=== PATIENT | female | born 1945 | race Caucasian/White ===

== ENCOUNTER 2021-04-08 06:56 | Day surgery (SDC) | payer MEDICARE, OTHER ==
[~2021-04-08 06:56] MED LIST: Lactated Ringers 1,000 ML IV SCH; Sodium Chloride 0.9% 10 ML SDV IV PRN; Sodium Chloride 0.9% 10 ML Syringe FLUSH PRN; Sodium Chloride 0.9% 2.5 ML Syringe FLUSH PRN
[2021-04-08] MEDS ORDERED: Ondansetron 4 MG/2 ML SDV ONE (07:00)
[2021-04-08] MEDS ORDERED: Lidocaine 2% 5 ML SDV ONE (07:00)
[2021-04-08] MEDS ORDERED: fentaNYL 100 MCG/2 ML SDV ONE (07:01)
[2021-04-08] MEDS ORDERED: Propofol 200 MG/20 ML SDV ONE (07:01)
--- NOTE | 2021-04-08 07:50 | PCM.PREANE ---
Preanesthetic Assessment - Anesthesia/Transfusion/Family Hx Anesthesia History: Prior Anesthesia Without Reaction Other Type of Anesthesia Reaction Comment: DENIES ANY PROBLEMS WITH ANESTHESIA Transfusion History: No Prior Transfusion(s) - Review of Systems General: No Symptoms Pulmonary: No Symptoms Cardiovascular: No Symptoms Gastrointestinal: No Symptoms Neurological: No Symptoms Other: Reports: None - Physical Assessment NPO Status Date: 04/08/21 NPO Status Time: 00:00 Vital Signs: Last Vital Signs Temp 97.7 F 04/08/21 07:11 Pulse 72 04/08/21 07:11 Resp 14 04/08/21 07:11 BP 149/74 H 04/08/21 07:11 Pulse Ox 96 04/08/21 07:11 Height: 5 ft 2 in Weight: 121 lb ASA Class: 3 Mental Status: Alert & Oriented x3 Airway Class: Mallampati = 2 Dentition: Reports: Normal Dentition ROM/Head Extension: Full Lungs: Clear to Auscultation, Normal Respiratory Effort Cardiovascular: Regular Rate, Regular Rhythm - Allergies Allergies/Adverse Reactions: Allergies Allergy/AdvReac Type Severity Reaction Status Date / Time No Known Allergies Allergy Verified 04/03/21 11:25 - Acknowledgements Anesthesia Type Planned: General Anesthesia Pt an Appropriate Candidate for the Planned Anesthesia: Yes Alternatives and Risks of Anesthesia Discussed w Pt/Guardian: Yes Pt/Guardian Understands and Agrees with Anesthesia Plan: Yes PreAnesthesia Questionnaire HEENT History: Reports: Other (See Below) Cardiovascular History: Reports: None Respiratory History: Reports: Other (See Below) Other Respiratory History: asthma as a child Gastrointestinal History: Reports: Other (See Below) Other Gastrointestinal History: epigastric pain and bloating Genitourinary History: Reports: None [employer] History: Reports: Musculoskeletal History: Reports: Osteoporosis Other Musculoskeletal History: psoratic arthritis Neurological History: Reports: Parkinson's Psychiatric History: Reports: Depression Endocrine/Metabolic History: Reports: None Hematologic History: Reports: None Immunologic History: Reports: None Oncologic (Cancer) History: Reports: None Dermatologic History: Reports: Psoriasis - Past Surgical History Head Surgeries/Procedures: Reports: None HEENT Surgical History: Reports: None Cardiovascular Surgical History: Reports: None Respiratory Surgical History: Reports: None GI Surgical History: Reports: Colonoscopy Female Surgical History: Reports: Hysterectomy, Salpingo-Oophorectomy Endocrine Surgical History: Reports: None Neurological Surgical History: Reports: None Musculoskeletal Surgical History: Reports: Other (See Below) Other Musculoskeletal Surgeries/Procedures:: tendon repair-left hand Oncologic Surgical History: Reports: None Dermatological Surgical History: Reports: None - SUBSTANCE USE Tobacco Use Status *Q: Former Tobacco User Tobacco Use Within Last Twelve Months: No - HOME MEDS Home Medications: Home Meds traZODone HCl [Trazodone HCl] 50 mg PO BEDTIME 08/23/14 [History] Adalimumab [Humira(Cf) Pen] 1 injection SUBCUT ASDIRECTED 04/03/21 [History] Carbidopa/Levodopa [Carbidopa-Levodopa 25-100] 1 tab PO TID 04/03/21 [History] Cholecalciferol (Vitamin D3) [Vitamin D3] 1,000 units PO DAILY 04/03/21 [History] Ezetimibe 10 mg PO DAILY 04/03/21 [History] Latanoprost/Pf [Latanoprost 0.005% Eye Drop] 1 drop EYEBOTH BEDTIME 04/03/21 [History] Lutein/Minerals/Vit A,C & E [Ocuvite] 1 tab PO DAILY 04/03/21 [History] Meloxicam [Mobic] 7.5 mg PO BID 04/03/21 [History] Potassium Gluconate [Potassium] 99 mg PO DAILY 04/03/21 [History] Selegiline HCl 5 mg PO BID 04/03/21 [History] Sertraline HCl 25 mg PO DAILY 04/03/21 [History] Zoledronic Acid in Water [Reclast] 1 dose IV ASDIRECTED 04/03/21 [History] - CURRENT (IN HOUSE) MEDS Current Meds: Current Medications Lactated Ringer's (Ringers, Lactated) 1,000 mls @ 125 mls/hr IV ASDIRECTED [facility] Last Admin: 04/08/21 07:14 Dose: 125 mls/hr Documented by: Sodium Chloride (Sodium Chloride 0.9% 10 Ml Syringe) 10 ml FLUSH ASDIRECTED PRN PRN Reason: Keep Vein Open Sodium Chloride (Sodium Chloride 0.9% 2.5 Ml Syringe) 2.5 ml FLUSH ASDIRECTED PRN PRN Reason: Keep Vein Open Sodium Chloride (Sodium Chloride 0.9% 10 Ml Syringe) 10 ml FLUSH ASDIRECTED PRN PRN Reason: Keep Vein Open Sodium Chloride (Sodium Chloride 0.9% 2.5 Ml Syringe) 2.5 ml FLUSH ASDIRECTED PRN PRN Reason: Keep Vein Open Sodium Chloride (Sodium Chloride 0.9% 10 Ml Sdv) 10 ml IV ASDIRECTED PRN PRN Reason: IV Use Discontinued Medications Fentanyl (Fentanyl 100 Mcg/2 Ml Sdv) Confirm Administered Dose 100 mcg .ROUTE .STK-MED ONE Stop: 04/08/21 07:02 Lidocaine (Lidocaine 2% 5 Ml Sdv) Confirm Administered Dose 5 ml .ROUTE .STK-MED ONE Stop: 04/08/21 07:01 Ondansetron HCl (Ondansetron 4 Mg/2 Ml Sdv) Confirm Administered Dose 4 mg .ROUTE .STK-MED ONE Stop: 04/08/21 07:01 Propofol (Propofol 200 Mg/20 Ml Sdv) Confirm Administered Dose 200 mg .ROUTE .STK-MED ONE Stop: 04/08/21 07:02
--- NOTE | 2021-04-08 08:10 | PCM48HPAN ---
Post Anesthesia Note - EVALUATION WITHIN 48HRS OF ANESTHETIC Vital Signs in Normal Range: Yes Patient Participated in Evaluation: Yes Respiratory Function Stable: Yes Airway Patent: Yes Cardiovascular Function Stable: Yes Hydration Status Stable: Yes Pain Control Satisfactory: Yes Nausea and Vomiting Control Satisfactory: Yes Mental Status Recovered: Yes Vital Signs: Last Vital Signs Temp 97.7 F 04/08/21 07:11 Pulse 72 04/08/21 07:11 Resp 14 04/08/21 07:11 BP 149/74 H 04/08/21 07:11 Pulse Ox 96 04/08/21 07:11
--- NOTE | 2021-04-08 08:10 | PCM.POSTAN ---
POST ANESTHESIA ASSESSMENT - MENTAL STATUS Mental Status: Alert, Oriented - VITAL SIGNS Vital Signs: Last Vital Signs Temp 97.7 F 04/08/21 07:11 Pulse 72 04/08/21 07:11 Resp 14 04/08/21 07:11 BP 149/74 H 04/08/21 07:11 Pulse Ox 96 04/08/21 07:11 - RESPIRATORY Respiratory Status: Respiratory Rate WNL, Airway Patent, O2 Saturation Stable - CARDIOVASCULAR CV Status: Pulse Rate WNL, Blood Pressure Stable - GASTROINTESTINAL GI Status: No Symptoms - POST OP HYDRATION Hydration Status: Adequate & Stable
--- NOTE | 2021-04-08 08:15 | PCM.OPNOTE ---
- General Post-Op/Procedure Note Date of Surgery/Procedure: 04/08/21 Operative Procedure(s): Diagnostic EGD with biopsy Findings: Mild esophagitis and stricture at the GE junction Pre Op Diagnosis: CHronic abdominal pain, bloating Post-Op Diagnosis: Esophagitis [place]est[place] [facility] [place] Surgeon: Stephanie Macdonald Condition: Good
[2021-04-08 08:33] VITALS: BP 104/61; PULSE 71
--- NOTE | 2021-04-08 12:26 | OR ---
SURGEON: STEPHANIE MACDONALD MD DATE OF PROCEDURE: 04/08/2021 PREOPERATIVE DIAGNOSES: Chronic abdominal pain, bloating. POSTOPERATIVE DIAGNOSIS: Esophagitis. PROCEDURE PERFORMED: Diagnostic esophagogastroduodenoscopy with biopsy. PRIMARY SURGEON: Stephanie Macdonald MD ANESTHESIA: MAC. INSTRUMENT USED: Olympus endoscope. EXTENT OF EXAM: To the second portion of duodenum. PREPARATION: Good. LIMITATIONS: None. INDICATIONS FOR EXAMINATION: The patient is a 75-year-old female with a history of Parkinson, who presents with chronic abdominal pain and bloating. The patient and I discussed her symptoms, and the decision was made to proceed with a diagnostic EGD. I explained the procedure, expected perioperative course, and the risks. She verbalized understanding and wishes to proceed. PROCEDURE IN DETAIL: The patient was brought to the endoscopy suite and placed in a beach chair position. A time-out was completed verifying the patient's name, age, date of , allergies, and procedure to be performed. Monitored anesthesia care was induced, and a bite block was placed in the patient's mouth. Continuous oxygen was provided via nasal cannula throughout the procedure. After adequate sedation was achieved, a well-lubricated endoscope was placed in the patient's mouth and advanced under direct visualization to the second portion of duodenum. This appeared normal, and a photograph was taken. The scope was then fully withdrawn while examining the color, texture, anatomy, and integrity of mucosa of the upper GI tract. The duodenum appeared normal. The scope was brought into the stomach, and a photograph was taken of the pylorus and GE junction. The patient was noted to have a slightly patulous lower esophageal sphincter. Biopsies were taken of the gastric antrum, body, and fundus and sent for histologic review and H. pylori testing. The scope was then brought into the distal esophagus. At the Z-line, the patient appeared to have a very mild narrowing associated with some esophagitis. A biopsy above this area was taken and sent to Pathology labeled as esophagus. Even though it was slightly narrowed, the esophagus was widely patent, so I made no attempt at dilation. The remainder of the esophagus appeared normal. The scope was removed, and the procedure terminated. The patient tolerated the procedure well and was transferred to the PACU in stable condition. ENDOSCOPIC DIAGNOSIS: Esophagitis. RECOMMENDATIONS: Follow up in clinic in 2 weeks. NICOLE PRASAD /[id number]
== END 2021-04-08 08:57 | disposition home or self-care (01) ==
LOC: MW.SDS 06:56
PROVIDERS: ATTEND Surgery
DX: K29.50 Unspecified chronic gastritis without bleeding (principal); K20.90 Esophagitis, unspecified without bleeding; M81.0 Age-related osteoporosis without current pathological fracture; G20 Parkinson's disease; M06.9 Rheumatoid arthritis, unspecified; E78.00 Pure hypercholesterolemia, unspecified; E11.9 Type 2 diabetes mellitus without complications; Z79.899 Other long term (current) drug therapy; Z79.84 Long term (current) use of oral hypoglycemic drugs; Z87.891 Personal history of nicotine dependence
CPT/HCPCS: 43239; J2405; J2704; J3010; J7120; 00731; 88305; 99100

== ENCOUNTER 2022-09-22 13:51 | Emergency (ER) | payer MEDICARE, OTHER ==
[2022-09-22] MEDS ORDERED: Sodium Chloride 0.9% 1,000 ML IV ONE (14:26)
[2022-09-22 15:39] LABS: CARBON DIOXIDE,CO2 28.8 mmol/L (21.0-32.0); POTASSIUM,K 4.3 mmol/L (3.5-5.1)
[2022-09-22] MEDS ORDERED: Iopamidol 755 MG/ML 500 ML Multipack Bottle IVPUSH STA (16:24)
[2022-09-22 17:37] VITALS: BP 151/83; PULSE 91
== END 2022-09-22 17:44 | disposition home or self-care (01) ==
LOC: MW.ED 13:51
DX: R10.30 Lower abdominal pain, unspecified (principal); E78.00 Pure hypercholesterolemia, unspecified; Z79.899 Other long term (current) drug therapy
CPT/HCPCS: 36415; 74177; 80053; 81001; 83690; 85025; 87086; 96360; 96361; 99284; J7030; Q9967

== ENCOUNTER 2024-01-22 09:39 | Emergency (ER) | payer MEDICARE, OTHER ==
[2024-01-22 10:21] LABS: BASOPHILS ABSOLUTE AUTO 0.04 K/uL (0.00-0.20); BASOPHILS PERCENT AUTO 0.6 % (0.0-1.0); EOSINOPHILS ABSOLUTE AUTO 0.23 K/uL (0.00-0.45); EOSINOPHILS PERCENT AUTO 3.7 % (0.0-6.0); HEMOGLOBIN 12.1 g/dL (12.0-16.0); IMMATURE GRAN ABSOLUTE AUTO 0.01 K/uL (0.00-0.05); IMMATURE GRAN PERCENT AUTO 0.2 % (0.0-0.4); LYMPHOCYTES PERCENT AUTO 41.6 % (24.0-44.0); MEAN CORPUSCULAR HEMOGLOBIN 29.5 pg (28.0-32.0); MEAN CORPUSCULAR HGB CONC 33.6 g/dL (32.0-36.0); MEAN CORPUSCULAR VOLUME 87.8 fL (83.0-99.0); MEAN PLATELET VOLUME 8.7 fL (9.4-12.3); MONOCYTES ABSOLUTE AUTO 0.46 K/uL (0.00-0.80); MONOCYTES PERCENT AUTO 7.4 % (0.0-8.0); NEUTROPHILS ABSOLUTE AUTO 2.91 K/uL (1.80-7.70); NEUTROPHILS PERCENT AUTO 46.5 % (41.0-71.0); PLATELET COUNT,PLT 313 K/uL (150-400); WHITE BLOOD CELL COUNT,WBC 6.25 K/uL (3.9-11.3)
[2024-01-22] MEDS: Sodium Chloride 0.9% 1,000 ML IV ONE (10:23)
[2024-01-22 10:37] LABS: A/G RATIO 0.9 (0.9-1.6); ALBUMIN 3.8 g/dL (3.4-5.0); BILIRUBIN TOTAL 1.1 mg/dL (0.2-1.0); CALCIUM 8.8 mg/dL (8.5-10.1); CARBON DIOXIDE,CO2 26.1 mmol/L (21.0-32.0); EST CRCL DRUG DOSING (CG) 33.3 mL/min; MAGNESIUM 2.1 mg/dL (1.8-2.4); POTASSIUM,K 3.8 mmol/L (3.5-5.1); PROTEIN TOTAL,TP 7.8 g/dL (6.4-8.2)
[2024-01-22 11:02] LABS: APPEARANCE,URINE CLEAR; BILIRUBIN,URINE NEGATIVE (NEGATIVE); COLOR,URINE YELLOW; GLUCOSE,URINE NEGATIVE (NEGATIVE); KETONES,URINE 15 mg/dL (NEGATIVE); LEUKOCYTE ESTERASE,URINE TRACE (NEGATIVE); NITRITE,URINE NEGATIVE (NEGATIVE); OCCULT BLOOD,URINE NEGATIVE (NEGATIVE); PROTEIN,URINE NEGATIVE (NEGATIVE); UROBILINOGEN,URINE 0.2 EU/dL (<2.0)
[2024-01-22 11:14] LABS: CALCIUM OXALATE CRYSTALS,URINE MANY (NEGATIVE); EPITHELIAL CELLS,URINE MODERATE (NONE-FEW); RBC,URINE 0-1 (0-2/HPF)
[2024-01-22 11:15] LABS: BACTERIA,URINE FEW (NEGATIVE); HYALINE CASTS,URINE 0-3 (0-2/LPF); MUCUS,URINE MODERATE (NONE-MOD)
[2024-01-22] MEDS: Sulfamethoxazole/Trimethoprim 800-160 MG Tab PO ONE (12:16)
[2024-01-22 12:22] VITALS: BP 161/83; PULSE 100
== END 2024-01-22 12:21 | disposition home or self-care (01) ==
LOC: MW.ED 09:39
DX: N39.0 Urinary tract infection, site not specified (principal); Z79.1 Long term (current) use of non-steroidal anti-inflammatories (NSAID); Z79.2 Long term (current) use of antibiotics; Z90.710 Acquired absence of both cervix and uterus; Z75.8 Other problems related to medical facilities and other health care
CPT/HCPCS: 80053; 81001; 81003; 83690; 83735; 85025; 87086; 96360; 99284; A9270; J7030; 99283